=== PATIENT | female | born 2005 | race Two or more races ===

== ENCOUNTER 2025-01-09 12:48 | Emergency (ER) | payer OTHER, SELFPAY ==
--- NOTE | ~2025-01-09 | US_ITS ---
EXAMINATION: US pelvic complete w TV INDICATION: Pelvic pain Comparison:No prior studies TECHNIQUE: Multiple transabdominal and endovaginal sonographic images of the pelvis performed. FINDINGS: The uterus measures 7.5 x 3.3 x 4.47. The endometrial complex measures 8 mm. The right ovary measures 1.9 x 1.7 x 1.5 cm and the left ovary measures 2.2 x 1.4 x 1.3 cm. There ar e small follicles in each ovary. Normal doppler signal in both ovaries. There is no free fluid in the pelvis. There are no abnormal masses seen on either side. IMPRESSION: 1. Unremarkable pelvic ultrasound. Reviewed, dictated and finalized at location A.
[2025-01-09 12:51] VITALS: BP 138/79; PULSE 80; TEMP 36.6; O2SAT 100
[2025-01-09 13:00] VITALS: BP 118/68; PULSE 70; RESP 16; TEMP 36.6; O2SAT 100
--- OUTSIDE RECORDS SUMMARY | 2025-01-09 13:34 | XMS_ITS | Clinical Summary ---
Author Organization [facility] Address [address] [place] [address] Care Team Providers Care Overhead Crane Technician Name Role Phone Shasta Mcqueen Primary Care Provider [phone] Allergies No known active allergies Medications Norethindrone Acet-Ethinyl Est (LOESTRIN 1.5, ,) 1.5-30 MG-MCG tabletIndicatio ns:Menorrhagia with irregular cycle,Dysmenorr hea Take 1 tablet by mouth daily. 84 tablet 3 5 Active norethindrone-e thinyl estradiol (LOESTRIN FE 10/28) 1-20 MG-MCG tabletIndicatio ns: control counseling Take 1 tablet by mouth daily. 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 Menorrhagia with irregular cycle 07/01/2019 Dysmenorrhea 07/01/2019 Resolved Problems Problem Noted Date Diagnosed Date Resolved Date Foul smelling vaginal discharge 01/03/2022 01/03/2022 School physical exam 07/01/2019 020 Encounters Date Type Department Care Team Description 01/02/2025 Telephone [facility] Family & Internal Medicine [address] [phone] Shasta Mcqueen FNP Advice 12/12/2024 Orders Only [facility] Family & Internal [address] [phone] Shasta Mcqueen FNP 12/10/2024 Telephone [facility] Internal [address] [phone] Shasta Mcqueen FNP Information 11/19/2024 2:00 PM LANDSCAPE TECHNICIAN Office Visit [facility] Internal [address] [phone] Shasta Mcqueen FNP Vacuum Tank Tender Exam (The patient presents for well woman exam. The patient states she is interested in starting the pill ) 11/19/2024 Travel from Last 3 Months Immunizations Name Administration Dates Next Due [id number] (Pediarix) 02/04/2004,2003,0 2003 DTaP-IPV/Hib (Pentacel) 08/06/2004 Dtap (Generic) 02/08/2005 Dtp (Generic) 04/22/2009 Fluzone (IIV3, Trivalent, 0. 5 ML Prefilled Syringe) 11/19/2024 Fluzone 6 Months+ Quad (0.5 mL Prefilled Syringe) 01/03/2022 HPV GARDASIL 9-VALENT 04/27/2018,05/14/2015 Hepatitis A (Generic) 05/13/2010,04/22/2009 Hepatitis B (Generic Peds) 2003 Hib (Generic) 02/08/2005,2003,2003 MMR (Generic) 04/29/2009,02/08/2005 Meningococcal (Menactra) 07/20/2021,05/05/2015 PFIZER COVID-19 (12+) MRNA, LNP-S, PF, ARIEL-SUCROSE, 30 MCG/0.3 ML (COMIRNATY) 11/19/2024 Pneumococcal (Prevnar 7) 02/08/2005,01/08,2003,10/15 Polio Ipv (Generic) 04/22/2009 Tdap (Generic) 05/05/2015 Varicella (Generic) 05/13/2010,02/08/2005 Family History Medical History Relation Comments Cancer Paternal Aunt breast Diabetes Paternal Grandfather Heart Disease Paternal Grandfather Relation Status Comments Father Alive Mother Alive Paternal Aunt Paternal Grandfather Alive Social History Tobacco Use Types Packs/Day Years Used Date Smoking Tobacco: Never Smokeless Tobacco: Never Tobacco Cessation:Counseling Given: Yes Alcohol Use Standard Drinks/Week Comments Yes 0 (1 standard drink = 0.6 oz pur e alcohol) 2-3 a week AUDIT-C Answer Date Recorded Frequency of Alcohol Consumption Never 07/01/2019 Average Number of Drinks Not on file 019 Frequency of Binge Drinking Not on file 06/10 PHQ-2 Answer Date Recorded Patient Health Questionnaire-2 Score 0 11/19/2024 Comments No Sex and Gender Information Value Date Recorded Sex Assigned at Female 11/19/2024 2:21 PM LANDSCAPE TECHNICIAN Legal Sex Female 8:30 PM CDT Gender Identity Female 11/19/2024 2:21 PM LANDSCAPE TECHNICIAN Sexual Orientation Not on file Last Filed Vital Signs Vital Sign Reading Time Taken Comments Blood Pressure 128/80 11/19/2024 2:23 PM LANDSCAPE TECHNICIAN Pulse 77 11/19/2024 2:23 PM LANDSCAPE TECHNICIAN Temperature 37 C (98.6 F) 11/19/2024 2:23 PM LANDSCAPE TECHNICIAN Respiratory Rate 16 11/19/2024 2:23 PM LANDSCAPE TECHNICIAN Oxygen Saturation 98% 11/19/2024 2:23 PM LANDSCAPE TECHNICIAN Inhaled Oxygen Concentration - - Weight 69 kg (152 lb 3.2 oz) 11/19/2024 2:23 PM LANDSCAPE TECHNICIAN Height 162.6 cm (5' 4 ) 11/19/2024 2:23 PM LANDSCAPE TECHNICIAN Body Mass Index 26.13 11/19/2024 2:23 PM LANDSCAPE TECHNICIAN Plan of Treatment Upcoming Encounters Date Type Department Care Team (Late st Contact Info) Description 01/28/2025 2:00 PM CDT Office Visit [facility] Family & Internal Medicine - [address] [phone] Shasta Mcqueen FNP [address] [place] [phone] Health Maintenance Due Date Last Done Comments Cervical Cancer Screening Pap Smear (Age 21 to 29) Every 3 Years 2003 Cervical Cancer Screening 2003 Chlamydia Screening Females ages 16-24 2019 Annual Physical 07/01/2020 07/01/2019 Hepatitis C 2021 DTaP, Tdap and Td Vaccines (7 - Td or Tdap) 05/05/2025 05/05/2015, 04/22/2009, 02/08/2005, Additional history exists Meningococcal B Vaccine (1 of 2 - Standard) 11/19/2025 Postponed from 2019 (Future Appointment) Hepatitis B Vaccines Completed 02/04/2004, 2003, 2003, Additional history exists Pneumococcal Vaccine: Pediatrics (0 to 5 Years) and At-Risk Patients (6 to 64 Years) Aged Out 02/08/2005, 02/04/2004, 2003, Additional history exists No longer eligible based on patient's age to complete this topic HPV Vaccines Completed 04/27/2018, 05/14/2015 Meningococcal Vaccine Completed 07/20/2021, 015 COVID-19 Vaccine Completed 11/19/2024, , 01/27/2021 Influenza Adult Completed 11/19/2024, 01/03/2022 PHQ-2 (Physician [place]) Completed 11/19/2024 RSV Immunizations Under 20 Months Aged Out No longer eligible based on patient's age to complete this topic Procedures Procedure Name Priority Date/Time Associated Diagnosis Comments TEST URINE Routine 11/19/2024 Encounter for initial prescription of contraceptive pills control counseling from Last 3 Months Results * TEST URINE (11/19/2024) URINE HCG TEST NEGATIVE NEGATIVE [facility] Internal Control: VALID VALID [facility] URINE SPECIMEN FROM URETHRA / Unknown 11/19/2024 us Shasta Mcqueen [facility] URINE ORDERABLES Final Result [facility] [address] [place] [address], [place] from Last 3 Months Insurance Care Teams Overhead Crane Technician Relationship Specialty Start Date End Date Shasta Mcqueen FNP [address] [place] [id number] PCP - General Nurse Practitioner Family 07/09/19
[2025-01-09] MEDS: KETOROLAC 30 MG/ML VIAL (*BKC) IV PUSH (13:41)
[2025-01-09] MEDS: SODIUM CHLORIDE 0.9% IV 1,000 ML 999 ML IV CONT (13:42)
[2025-01-09 13:52] LABS: Basophils Percent Auto 0.2 % (0.2-1.2); Eosinophils Percent Auto 0.3 % (0-4.4); Hemoglobin 12.4 g/dL (12.0-15.0); Immature Granulocyte Absolute 0.01 K/mm3 (0.00-0.031); Immature Granulocyte Percent A 0.2 % (0-0.5); Lymphocytes Absolute Auto 1.31 K/mm3 (0.9-3.2); Lymphocytes Percent Auto 20.3 % (18.3-44.2); Mean Corpuscular HGB Conc 33.5 g/dl (32-36); Mean Corpuscular Hemoglobin 30.7 pg (26-34); Mean Corpuscular Volume 91.6 fl (80-100); Mean Platelet Volume 10.4 fl (7.4-10.4); Monocytes Absolute Auto 0.5 K/mm3 (0.1-0.6); Monocytes Percent Auto 7.8 % (2.6-8.5); Neutrophils Absolute Auto 4.6 K/mm3 (1.3-6.7); Neutrophils Percent Auto 71.2 % (45.5-73.1); Platelet Count Result 249 k/mm3 (150-375); Red Blood Count 4.04 M/mm3 (4.2-5.4); Red Cell Distribution Width 12.9 % (11.5-14.5); White Blood Count 6.4 K/mm3 (4.5-10.0)
[2025-01-09 14:00] VITALS: BP 116/70; PULSE 74; RESP 16; TEMP 36.6; O2SAT 99
[2025-01-09 14:11] LABS: Alanine Aminotransferase 24 U/L (6-35); Albumin Level 4.3 g/dL (3.5-5.1); Alkaline Phosphatase 60 U/L (38-126); Anion Gap 7 mmol/L (4-12); Aspartate Amino Transferase 27 U/L (14-36); Bilirubin,Total 0.6 mg/dL (0.2-1.3); Blood Urea Nitrogen 5 mg/dL (7-17); Carbon Dioxide 24 mmol/L (22-30); Chloride 105 mmol/L (98-107); Estimated CRCL calculation 107 ml/min; Estimated Glomerular Filt Rate > 60; Glucose 84 mg/dL (65-110); Potassium 4.1 mmol/L (3.4-5.0); Sodium 136 mmol/L (137-145)
[2025-01-09 14:15] LABS: Add Urine Microscopic? YES; Appearance Urine Clear (Clear); Bacteria Urine None Seen /hpf; Bilirubin Urine Negative (Negative); Blood Urine 2+ (Negative); Color Urine Yellow (Yellow); Glucose Urine UA Negative (Negative); Ketones Urine 1+ mg/dL (Negative); Leukocyte Esterase Ur Trace LEU/UL (Negative); Nitrate Urine Negative (Negative); Non Pathogenic Casts 0-2; Protein Urine Negative (Negative); RBC Urine 0-2 /hpf (0-2); Specific Grav Ur 1.009 (1.001-1.035); Squamous Epithelial Cell Urine None Seen /hpf (Few); Urobilinogen Urine 0.2 mg/dL (<2.0); WBC Urine 0-5 /hpf (0-3)
[2025-01-09 15:00] VITALS: BP 116/68; PULSE 70; RESP 16; TEMP 36.5; O2SAT 100
--- NOTE | 2025-01-09 15:31 | ED_ITS ---
HPI - General Adult General Chief complaint: Abdominal Pain Stated complaint: Abd cramping x 1 week, not preg Time Seen by Provider: 01/09/25 12:58 History of Present Illness HPI narrative: The patient is a 19 year old female who presents ER with lower abdominal cramping. Ongoing for a little over week. No fevers or chills or sweats. Associated with vaginal bleeding and spotting intermittently. Recently changed her control. LMP 1 month ago. Does not see a payroll associate but does have a family practitioner that she sees. Denies urinary frequency urgency or dysuria. No vaginal discharge. Denies risk for sexually transmitted infection. Related Data Allergies Allergy/AdvReac Type Severity Reaction Status Date / Time No Known Allergies Allergy Verified 01/09/25 12:50 Review of Systems 2 Review of Systems: All systems reviewed & are unremarkable except as noted in HPI and below Constitutional: Constitutional: Reports no additional constitutional complaints ENT: Reports system reviewed and no additional complaints, except as documented Cardiovascular: Cardiovascular: Reports no additional cardiovascular complaints Respiratory: Respiratory: Reports no additional respiratory complaints Gastrointestinal: Gastrointestinal: Reports no additional gastrointestinal complaints Genitourinary: Genitourinary: Reports no additional female genitourinary complaints [facility] Past Medical History Medical History (Updated 01/09/25 @ 15:36 by Bairon Flores MD) Healthy female adult Surgical History Surgical History (Updated 01/09/25 @ 15:34 by Bairon Flores MD) No history of previous surgery Course Course Emergency Course: Patient resting comfortably. Given Toradol and IV fluid. Labs normal. Recommend follow-up with her LINING SCRUBBER but may also benefit from seeing Gynecology. Vital Signs Vital signs: Vital Signs Temperature 97.8 F 01/09/25 12:51 Pulse Rate 80 01/09/25 12:51 Blood Pressure 138/79 01/09/25 12:51 Pulse Oximetry 100 01/09/25 12:51 Oxygen Delivery Room Air 01/09/25 12:51 Temperature 97.8 F 01/09/25 12:51 Pulse Rate 80 01/09/25 12:51 Blood Pressure 138/79 01/09/25 12:51 Pulse Oximetry 100 01/09/25 12:51 Oxygen Delivery Room Air 01/09/25 12:51 Medical Decision Making Vital Signs Vital Signs: Vital Signs Temperature 97.8 F 01/09/25 12:51 Pulse Rate 80 01/09/25 12:51 Blood Pressure 138/79 01/09/25 12:51 Pulse Oximetry 100 01/09/25 12:51 Oxygen Delivery Room Air 01/09/25 12:51 Temperature 97.8 F 01/09/25 12:51 Pulse Rate 80 01/09/25 12:51 Blood Pressure 138/79 01/09/25 12:51 Pulse Oximetry 100 01/09/25 12:51 Oxygen Delivery Room Air 01/09/25 12:51 Lab Data 01/09/25 13:45 01/09/25 13:45 Labs: Lab Results 01/09/25 01/09/25 Range/Units 13:45 14:04 WBC 6.4 (4.5-10.0) K/mm3 RBC 4.04 L (4.2-5.4) M/mm3 Hgb 12.4 (12.0-15.0) g/dL Hct 37.0 (37.0-47.0) % MCV 91.6 (80-100) fl MCH 30.7 (26-34) pg MCHC 33.5 (32-36) g/dl RDW 12.9 (11.5-14.5) % Plt Count 249 (150-375) k/mm3 MPV 10.4 (7.4-10.4) fl Immature Gran % (Auto) 0.2 (0-0.5) % Neut % (Auto) 71.2 (45.5-73.1) % Lymph % (Auto) 20.3 (18.3-44.2) % [place] % (Auto) 7.8 (2.6-8.5) % Eos % (Auto) 0.3 (0-4.4) % Baso % (Auto) 0.2 (0.2-1.2) % Lymph # (Auto) 1.31 (0.9-3.2) K/mm3 [place] # (Auto) 0.5 (0.1-0.6) K/mm3 Eos # (Auto) 0.0 (0-0.3) K/mm3 Baso # (Auto) 0.0 (0.0-0.1) K/mm3 Abs Immat Gran (auto) 0.01 (0.00-0.031) K/mm3 Absolute Neuts (auto) 4.6 (1.3-6.7) K/mm3 Absolute Nucleated RBC 0.000 (0.0-0.012) K/mm3 Nucleated RBC % 0.0 (0.0-0.2) % Sodium 136 L (137-145) mmol/L Potassium 4.1 (3.4-5.0) mmol/L Chloride 105 (98-107) mmol/L Carbon Dioxide 24 (22-30) mmol/L Anion Gap 7 (4-12) mmol/L BUN 5 L (7-17) mg/dL Creatinine 0.61 L (0.7-1.0) mg/dL Estim Creat Clear Calc 107 ml/min Estimated GFR > 60 (59 - ) Glucose 84 (65-110) mg/dL Calcium 9.0 (8.4-10.2) mg/dL Total Bilirubin 0.6 (0.2-1.3) mg/dL AST 27 (14-36) U/L ALT 24 (6-35) U/L Alkaline Phosphatase 60 (38-126) U/L Total Protein 8.0 (6.3-8.2) g/dL Albumin 4.3 (3.5-5.1) g/dL Urine Color Yellow (Yellow) Urine Appearance Clear (Clear) Urine pH 7.0 (5.0-9.0) Ur Specific [place] 1.009 (1.001-1.035) Urine Protein Negative (Negative) mg/dL Urine Glucose (UA) Negative (Negative) mg/dL Urine Ketones 1+ H (Negative) mg/dL Ur Blood (Man) 2+ H (Negative) Urine Nitrate Negative (Negative) Urine Bilirubin Negative (Negative) Urine Urobilinogen 0.2 (<2.0) mg/dL Leukocyte Esterase Rfl Trace H (Negative) KETAN/UL Urine RBC 0-2 (0-2) /hpf Urine WBC 0-5 (0-3) /hpf Ur Squamous Epith Cells None seen (Few) /hpf Urine Bacteria None seen /hpf Urine Casts 0-2 Imaging Data Radiologist's impression: ITS Impressions Pelvic/Transvag US 01/09/25 14:56 IMPRESSION: 1. Unremarkable pelvic ultrasound. Discharge Plan Discharge Clinical Impression: DUB (dysfunctional uterine bleeding) Patient Disposition: Home, Self-Care Condition: Stable Instructions: Abnormal (Dysfunctional) Uterine Bleeding (ED) Additional Instructions: Return to the emergency department if you develop severe abdominal pain, severe nausea and vomiting to the point where you are unable to keep down fluids, if you develop chest pain or difficulty breathing, blood in your stool, dizziness or fainting, or if you develop any other new or concerning symptoms as these could be signs of more serious medical illness. Try to stay well hydrated. Patient Language: Micronesian Prescriptions: New naproxen 375 mg tablet 375 mg PO BID Qty: 14 0RF Follow-up/Referrals: Javed Motta MD [Physician] - 1 Week UNKNOWN,DOCTOR [Primary Care Provider] -
[2025-01-09 16:00] VITALS: BP 114/68; PULSE 70; RESP 16; TEMP 36.6; O2SAT 100
== END 2025-01-09 16:24 | disposition home or self-care (01) ==
PROVIDERS: Emergency Provider Emergency Medicine
DX: N93.8 Other specified abnormal uterine and vaginal bleeding (principal)
CPT/HCPCS: 36415; 76830; 76856; 80053; 81001; 85025; 96361; 96374; 99284; J1885; J7030